=== PATIENT | male | born 1930 | race Two or more races ===

== ENCOUNTER 2018-09-14 15:07 | Emergency (ER) | payer MEDICARE, BC ==
[~2018-09-14] VITALS: Ht 165.1 cm; Wt 62.6 kg
[2018-09-14 16:29] LABS: Basophils # (auto) 0 uL; Basophils % (auto) 0.3 % (0.0-2.0); Eosinophils # (auto) 0.2 uL; Eosinophils % (auto) 3.7 % (0.0-7.0); Hematocrit 49.1 % (41.0-53.0); Hemoglobin 16.6 g/dL (13.5-17.5); Lymphocytes # (auto) 1.5 uL; Lymphocytes % (auto) 23.6 % (10.0-50.0); Mean Corpuscular Hemoglobin 32.4 pg (28.0-32.0); Mean Corpuscular Hgb Conc. 33.8 g/dL (32.0-36.0); Mean Corpuscular Volume 95.7 fL (80.0-100.0); Monocytes # (auto) 0.6 uL; Monocytes % (auto) 9.2 % (0.0-12.0); Neutrophils # (auto) 3.9 uL; Neutrophils % (auto) 63.2 % (37.0-80.0); Nucleated Red Blood Cells % 0.1 %; Platelet Count (auto) 257 10^3/uL (140-450); Red Blood Cells 5.13 10^6/uL (4.5-5.90); Red Cell Distribution Width 13.6 % (11.8-14.3); White Blood Cell 6.2 10^3/uL (4.4-10.8)
[2018-09-14 16:42] LABS: Albumin 3.6 g/dL (3.4-5.0); Calcium 8.4 mg/dL (8.5-10.1); Potassium 3.6 mmol/L (3.5-5.1)
[2018-09-14 16:45] LABS: BUN/Creatinine Ratio 13.5; Bilirubin, Total 0.6 mg/dL (0.2-1.0); Total Protein 7.4 g/dL (6.4-8.2)
[2018-09-14] MEDS: cloNIDine HCL 0.1 MG TAB PO ONE (17:03)
[2018-09-14 18:17] LABS: Urine Bacteria NONE SEEN /hpf (None Seen); Urine Blood TRACE /uL (Negative); Urine Hyaline Cast FEW /lpf (0 - 2); Urine WBC 7 /hpf (0 - 3)
[2018-09-14 19:12] VITALS: BP 121/76
== END 2018-09-14 19:13 | disposition home or self-care (01) ==
LOC: ER 15:10
DX: M54.2 Cervicalgia (principal); I16.0 Hypertensive urgency; I10 Essential (primary) hypertension; E07.9 Disorder of thyroid, unspecified
CPT/HCPCS: 36415; 71046; 80053; 81001; 83735; 84443; 85025; 93005; 94761

== ENCOUNTER → 2018-11-08 | Outpatient (CLI) | payer MEDICARE, BC ==
[2018-11-08 10:52] LABS: Urine Bacteria NONE SEEN /hpf (None Seen); Urine Blood TRACE /uL (Negative); Urine Specific Gravity 1.016 (1.001-1.035); Urine WBC 16 /hpf (0 - 3)
[2018-11-08 11:38] LABS: Alanine Aminotransferase 20 U/L (16-61); Albumin 3.6 g/dL (3.4-5.0); Anion Gap 4 (5-15); Aspartate Aminotransferase 11 U/L (15-37); Blood Urea Nitrogen 20 mg/dL (7-18); Calcium 8.4 mg/dL (8.5-10.1); Carbon Dioxide 29 mmol/L (21-32); Chloride 107 mmol/L (98-107); Glucose 91 mg/dL (74-106); Potassium 4.2 mmol/L (3.5-5.1); Sodium 140 mmol/L (136-145); Uric Acid 5.1 mg/dL (3.5-7.2)
[2018-11-08 11:41] LABS: Alkaline Phosphatase 84 U/L (45-117); BUN/Creatinine Ratio 14.8; Cholesterol 183 mg/dL (< 200); GFR Non-African American 53 mL/min; HDL Cholesterol 47 mg/dL (40-59); LDL Cholesterol 132 mg/dL (< 100); Total Protein 6.9 g/dL (6.4-8.2); Triglycerides 128 mg/dL (< 150)
[2018-11-08 11:45] LABS: GFR African American > 60 mL/min
[2018-11-08 13:12] LABS: Creatinine Clearance, Urine 50.08 mL/min (75-115)
== END | disposition home or self-care (01) ==
LOC: LAB 09:46
DX: Z12.11 Encounter for screening for malignant neoplasm of colon (principal); I12.9 Hypertensive chronic kidney disease with stage 1 through stage 4 chronic kidney disease, or unspecified chronic kidney disease; N18.3 Chronic kidney disease, stage 3 (moderate); R35.1 Nocturia; R73.01 Impaired fasting glucose; I70.0 Atherosclerosis of aorta; N20.0 Calculus of kidney
CPT/HCPCS: 36415; 80053; 80061; 81001; 82270; 82575; 83036; 84154; 84550